=== PATIENT | male | born 2000 | race Caucasian/White ===

== ENCOUNTER 2024-06-28 15:21 | Emergency (ER) | payer SELFPAY ==
[~2024-06-28] VITALS: Ht 177.8 cm; Wt 150.0 kg
[2024-06-28 15:54] VITALS: O2SAT 99
[2024-06-28] MEDS: KETOROLAC 30MG/ML VIAL IM ONE (17:46)
[2024-06-28] MEDS ORDERED: IBUP-2030 MT (18:10)
[2024-06-28 18:25] VITALS: BP 111/69; PULSE 81; RESP 18; TEMP 36.8; O2SAT 99
== END 2024-06-28 18:26 | disposition home or self-care (01) ==
LOC: ER 15:21
DX: M25.532 Pain in left wrist (principal); M41.9 Scoliosis, unspecified
CPT/HCPCS: 73110; 73130; 96372; 99284; J1885; Z7610